=== PATIENT | male | born 1960 | race Caucasian/White ===

== ENCOUNTER 2019-01-14 07:49 | Outpatient (CLI) | payer OTHER ==
[~2019-01-14 07:49] MED LIST: ALLO300T PO; ERGO500017 PO; LISI40TA PO
== END 2019-01-14 23:59 | disposition home or self-care (01) ==
LOC: CVU 07:49
PROVIDERS: ATTEND Internal Medicine Cardiovascular Disease
DX: I08.0 Rheumatic disorders of both mitral and aortic valves (principal); R94.31 Abnormal electrocardiogram [ECG] [EKG]
CPT/HCPCS: 0399T; 93306

== ENCOUNTER 2019-05-06 06:51 | Day surgery (SDC) | payer OTHER ==
[~2019-05-06] VITALS: Ht 177.8 cm; Wt 88.4 kg
[2019-05-06] MEDS ORDERED: LACTATED RINGERS 1,000 ML IV SCH (07:20)
[2019-05-06] MEDS ORDERED: FABRAZYME IV (07:26)
[2019-05-06] MEDS ORDERED: METO5TAB5 PO (07:26)
[2019-05-06 07:30] VITALS: BP 127/85
[2019-05-06] MEDS ORDERED: LIDOCAINE-MPF 1%, 2ML INFIL ONE (07:30)
[2019-05-06] MEDS ORDERED: BUPIVACAINE/PF 0.5% ONE (07:59)
[2019-05-06] MEDS ORDERED: NEOSPORIN OINT, 15GM ONE (07:59)
[2019-05-06] MEDS ORDERED: EPINEPHRINE 1 MG/ML, 1ML ONE (08:00)
[2019-05-06] MEDS ORDERED: SODIUM CHLORIDE 0.9% 1,000 ML IV SCH (08:00)
[2019-05-06] MEDS ORDERED: MIDAZOLAM 1 MG/ML, 2ML ONE (08:05)
[2019-05-06] MEDS ORDERED: FENTANYL PF 100 MCG/2ML ONE (08:05)
[2019-05-06 08:12] LABS: ALBUMIN 3.5 g/dL (3.4-5.0); ANION GAP 5 mmol/L (5-15); CALCIUM 8.5 mg/dL (8.5-10.1); CHLORIDE 113 mmol/L (98-107)
[2019-05-06 08:16] LABS: ALANINE AMINOTRANSFERASE 18 U/L (12-78); ALKALINE PHOSPHATASE 67 U/L (45-117); BILIRUBIN,TOTAL 0.3 mg/dL (0.2-1.0); CREATININE 3.19 mg/dL (0.7-1.3); TOTAL PROTEIN 7.3 g/dL (6.4-8.2)
[2019-05-06] MEDS ORDERED: ONDANSETRON 2MG/ML, 2ML ONE (08:48)
[2019-05-06] MEDS ORDERED: CEFAZOLIN 1,000 MG ONE (08:48)
[2019-05-06] MEDS ORDERED: SUCCINYLCHOLINE 20 MG/ML, 10ML ONE (08:48)
[2019-05-06] MEDS ORDERED: PROPOFOL 10 MG/ML, 20ML ONE (08:48)
[2019-05-06] MEDS ORDERED: DEXAMETHASONE 4 MG/ML, 1ML ONE (08:48)
[2019-05-06] MEDS ORDERED: ROCURONIUM 10MG/ML,5ML ONE (08:48)
[2019-05-06] MEDS ORDERED: HYDROmorphone 1 MG/ML, 1ML INJ IV PRN (09:30)
[2019-05-06] MEDS ORDERED: ALBUTEROL SULFATE 2.5 MG/3 ML NPPB PRN (09:30)
[2019-05-06] MEDS ORDERED: ONDANSETRON 2MG/ML, 2ML IVPush PRN (09:30)
[2019-05-06] MEDS ORDERED: OXYcodone 5 MG/5 ML ORAL.SOL UDC PO PRN (09:30)
[2019-05-06] MEDS ORDERED: FENTANYL PF 100 MCG/2ML IV PRN (09:30)
[2019-05-06] MEDS ORDERED: KETOROLAC 30 MG/1 ML IV PRN (09:30)
[2019-05-06] MEDS ORDERED: PROMETHAZINE 25 MG/ML, 1ML IV PRN (09:30)
[2019-05-06] MEDS ORDERED: LABETALOL 5MG/ML, 20ML IV PRN (09:30)
[2019-05-06] MEDS ORDERED: MEPERIDINE/PF 25MG/0.5ML IVPush PRN (09:30)
[2019-05-06] MEDS ORDERED: hydrALAzine 20 MG/ML, 1ML IV PRN (09:30)
== END 2019-05-06 11:20 | disposition home or self-care (01) ==
LOC: OUT 06:51
PROVIDERS: ATTEND Orthopaedic Surgery
DX: T84.84XA Pain due to internal orthopedic prosthetic devices, implants and grafts, initial encounter (principal); I12.0 Hypertensive chronic kidney disease with stage 5 chronic kidney disease or end stage renal disease; N18.6 End stage renal disease; Z79.899 Other long term (current) drug therapy; Y83.8 Other surgical procedures as the cause of abnormal reaction of the patient, or of later complication, without mention of misadventure at the time of the procedure
CPT/HCPCS: 20680; 36415; 80053; J0171; J0330; J0690; J1100; J2250; J2405; J2704; J3010; J7030; J7120

== ENCOUNTER → 2020-06-10 | Outpatient (CLI) | payer OTHER ==
[~2020-06-10] MED LIST changes: +FABRAZYME IV; +METO5TAB5 PO
== END | disposition home or self-care (01) ==
LOC: STAR 14:35
PROVIDERS: ATTEND Anesthesiology
DX: Z20.828 Contact with and (suspected) exposure to other viral communicable diseases (principal)
CPT/HCPCS: 87635

== ENCOUNTER 2020-06-16 12:59 | Day surgery (SDC) | payer OTHER ==
[~2020-06-16] VITALS: Ht 177.8 cm; Wt 85.0 kg
[2020-06-16] MEDS ORDERED: FEBU40TA PO (13:42)
[2020-06-16] MEDS ORDERED: [UNRECOGNIZED DRUG - CODE] PO (13:42)
[2020-06-16 13:43] VITALS: BP 126/87
[2020-06-16] MEDS ORDERED: CHLORHEXIDINE 15 ML UDC MM ONE (14:00)
[2020-06-16] MEDS ORDERED: LACTATED RINGERS 1,000 ML IV SCH (14:00)
[2020-06-16] MEDS ORDERED: SODIUM CHLORIDE 0.9% 1,000 ML IV SCH (14:00)
[2020-06-16 14:46] LABS: BASOPHILS % (AUTO) 1 % (0-1); EOSINOPHILS % (AUTO) 1 % (1-7); LYMPHOCYTES % (AUTO) 21 % (22-44); MEAN CORPUSCULAR HEMOGLOBIN 30.5 pg (27.5-34.5); MEAN CORPUSCULAR HGB CONC 33.6 g/dL (33.2-36.2); MEAN PLATELET VOLUME 8.3 fL (7.4-10.4); MONOCYTES % (AUTO) 6 % (2-9); NEUTROPHILS % (AUTO) 72 % (42-75); PLATELET COUNT 241 x10^3/uL (130-400); RED BLOOD COUNT 4.58 x10^6/uL (4.38-5.82)
[2020-06-16 14:48] LABS: MD NO
[2020-06-16 14:51] LABS: ALANINE AMINOTRANSFERASE 20 U/L (12-78); ALBUMIN 3.8 g/dL (3.4-5.0); ANION GAP 7 mmol/L (5-15); CALCIUM 8.8 mg/dL (8.5-10.1); CHLORIDE 112 mmol/L (98-107); CREATININE 3.68 mg/dL (0.7-1.3)
[2020-06-16 14:54] LABS: ALKALINE PHOSPHATASE 72 U/L (45-117); BILIRUBIN,TOTAL 0.3 mg/dL (0.2-1.0); TOTAL PROTEIN 7.4 g/dL (6.4-8.2)
[2020-06-16] MEDS ORDERED: BUPIVACAINE/PF 0.25% ONE (15:02)
[2020-06-16] MEDS ORDERED: LIDOCAINE/PF 1%, 30ML ONE (15:02)
[2020-06-16] MEDS ORDERED: HEPARIN 1,000 UNITS/ML, 10ML ONE (15:02)
[2020-06-16] MEDS ORDERED: THROMBIN 5,000 UNIT VIAL TP ONE (15:02)
[2020-06-16] MEDS ORDERED: CEFAZOLIN 1,000 MG ONE (15:23)
[2020-06-16] MEDS ORDERED: PROPOFOL 10 MG/ML, 20ML ONE (15:23)
[2020-06-16] MEDS ORDERED: ONDANSETRON 2MG/ML, 2ML ONE (15:23)
[2020-06-16] MEDS ORDERED: SUCCINYLCHOLINE 20 MG/ML, 10ML ONE (15:23)
[2020-06-16] MEDS ORDERED: SUGAMMADEX 200 MG/2 ML IVPush ONE (15:23)
[2020-06-16] MEDS ORDERED: ROCURONIUM 10 MG/ML,10ML ONE (15:23)
[2020-06-16] MEDS ORDERED: MIDAZOLAM 1 MG/ML, 2ML ONE (15:27)
[2020-06-16] MEDS ORDERED: BUPIVACAINE 0.25% INFIL ONE (15:49)
[2020-06-16] MEDS ORDERED: MEPERIDINE/PF 25MG/0.5ML IVPush PRN (16:00)
[2020-06-16] MEDS ORDERED: ALBUTEROL SULFATE 2.5 MG/3 ML NPPB PRN (16:00)
[2020-06-16] MEDS ORDERED: PROMETHAZINE 25 MG/ML, 1ML IV PRN (16:00)
[2020-06-16] MEDS ORDERED: DIAZEPAM 5 MG/ML, 2ML IV PRN ×2 (16:00)
[2020-06-16] MEDS ORDERED: ONDANSETRON 2MG/ML, 2ML IVPush PRN (16:00)
[2020-06-16] MEDS ORDERED: KETOROLAC 30 MG/1 ML IV PRN (16:00)
[2020-06-16] MEDS ORDERED: HYDROmorphone 1 MG/ML, 1ML INJ IV PRN (16:00)
[2020-06-16] MEDS ORDERED: hydrALAzine 20 MG/ML, 1ML IV PRN (16:00)
[2020-06-16] MEDS ORDERED: LABETALOL 5MG/ML, 20ML IV PRN (16:00)
[2020-06-16] MEDS ORDERED: OXYcodone 5 MG/5 ML ORAL.SOL UDC PO PRN (16:00)
[2020-06-16] MEDS ORDERED: FENTANYL PF 100 MCG/2ML ONE (16:57)
[2020-06-16] MEDS: FENTANYL PF 100 MCG/2ML IV PRN ×2 (16:58→17:14)
[2020-06-16] MEDS ORDERED: OXYcodone 5 MG/5 ML ORAL.SOL UDC ONE (17:15)
== END 2020-06-16 19:00 | disposition home or self-care (01) ==
LOC: OR 12:59
PROVIDERS: ATTEND Surgery
DX: I12.0 Hypertensive chronic kidney disease with stage 5 chronic kidney disease or end stage renal disease (principal); N18.6 End stage renal disease; M10.9 Gout, unspecified; E75.21 Fabry (-Anderson) disease; Z98.890 Other specified postprocedural states; Z79.899 Other long term (current) drug therapy
CPT/HCPCS: 36415; 36821; 80053; 85025; 93005; J0330; J0690; J1644; J2250; J2405; J2704; J3010; J7120

== ENCOUNTER 2020-09-10 12:35 | Outpatient (CLI) | payer OTHER ==
[~2020-09-10 12:35] MED LIST changes: +FEBU40TA PO; -LISI40TA PO; +LISI40TA9 PO; +[UNRECOGNIZED DRUG - CODE] PO
== END 2020-09-10 23:59 | disposition home or self-care (01) ==
LOC: CVU 12:35
PROVIDERS: ATTEND Surgery
DX: I77.0 Arteriovenous fistula, acquired (principal); I70.8 Atherosclerosis of other arteries; I10 Essential (primary) hypertension
CPT/HCPCS: 93990